=== PATIENT | female | born 1960 | race Caucasian/White ===

== ENCOUNTER 2019-02-15 05:50 | Day surgery (SDC) | payer OTHER ==
[~2019-02-15] VITALS: Ht 152.4 cm; Wt 54.0 kg
[2019-02-15] MEDS ORDERED: SEVOFLURANE 250 ML BTL INH ONE (08:15)
[2019-02-15] MEDS ORDERED: LIDOCAINE 2% 100 MG/5 ML SYR IVP ONE (08:15)
[2019-02-15] MEDS ORDERED: PROPOFOL 200 MG/20 ML VIAL IV ONE (08:15)
[2019-02-15] MEDS ORDERED: ceFAZolin 1,000 MG VIAL ONE (08:15)
[2019-02-15] MEDS ORDERED: BUPIVACAINE-MPF 0.5% 30 ML VIAL INJ ONE (08:25)
[2019-02-15] MEDS ORDERED: MIDAZOLAM 2 MG/2 ML VIAL ONE (08:29)
[2019-02-15] MEDS ORDERED: fentaNYL 0.05 MG/ML VIAL ONE (08:29)
[2019-02-15] MEDS ORDERED: HYDROmorphone 1 MG/ML AMP IVP PRN (08:50)
[2019-02-15] MEDS ORDERED: BLOOD GLUCOSE MONITORING 1 DEV DEV FS SCH (08:50)
[2019-02-15] MEDS ORDERED: ONDANSETRON 4 MG/2 ML VIAL IVP PRN (08:50)
[2019-02-15] MEDS ORDERED: MORPHINE SULFATE 4 MG/ML SYR IV PRN (09:55)
[2019-02-15] MEDS ORDERED: ONDANSETRON 4 MG/2 ML VIAL IV PRN (09:55)
[2019-02-15] MEDS ORDERED: HYDROcodone/APAP 5/325 MG 1 TAB TAB PO PRN (09:55)
[2019-02-15] MEDS ORDERED: MORPHINE SULFATE 2 MG/ML SYR IVP PRN (09:55)
[2019-02-15] MEDS ORDERED: ACETAMINOPHEN 325 MG TAB PO PRN (09:55)
== END 2019-02-15 11:23 | disposition home or self-care (01) ==
LOC: MDS 05:50 → MMU 05:54 → MDS 11:23
PROVIDERS: ATTEND Surgery
DX: M67.432 Ganglion, left wrist (principal); M65.9 Synovitis and tenosynovitis, unspecified; E11.9 Type 2 diabetes mellitus without complications; M19.90 Unspecified osteoarthritis, unspecified site; F17.210 Nicotine dependence, cigarettes, uncomplicated; Z98.41 Cataract extraction status, right eye; Z98.42 Cataract extraction status, left eye; Z79.899 Other long term (current) drug therapy; Z98.890 Other specified postprocedural states; Z79.84 Long term (current) use of oral hypoglycemic drugs
CPT/HCPCS: 25111; 71045; 82948; 88304; J0690; J2001; J2250; J2704; J3010; J3490; J7030; J7060

== ENCOUNTER 2021-04-18 06:24 | Day surgery (SDC) | payer OTHER, SELFPAY ==
[~2021-04-18] VITALS: Ht 152.4 cm; Wt 54.9 kg
[2021-04-18] MEDS ORDERED: LIDOCAINE 2% 100 MG/5 ML UJET TP ONE (09:28)
[2021-04-18] MEDS ORDERED: fentaNYL citrate 0.05 MG/ML VIAL ONE (09:28)
[2021-04-18] MEDS ORDERED: fentaNYL citrate 0.05 MG/ML VIAL IVP ONE (10:10)
== END 2021-04-18 10:35 | disposition home or self-care (01) ==
LOC: MDS 06:24 → MMU 06:24 → MDS 10:35
PROVIDERS: ATTEND Internal Medicine Gastroenterology
DX: Z12.11 Encounter for screening for malignant neoplasm of colon (principal); E11.9 Type 2 diabetes mellitus without complications; K64.4 Residual hemorrhoidal skin tags; M19.90 Unspecified osteoarthritis, unspecified site; E78.5 Hyperlipidemia, unspecified; F17.200 Nicotine dependence, unspecified, uncomplicated; Z79.82 Long term (current) use of aspirin; Z79.899 Other long term (current) drug therapy
CPT/HCPCS: 45378; J3010; U0003

== ENCOUNTER 2021-06-14 16:22 | Emergency (ER) | payer OTHER, SELFPAY ==
[~2021-06-14] VITALS: Ht 152.4 cm; Wt 54.9 kg
[2021-06-14 16:32] VITALS: BP 146/95
--- NOTE | 2021-06-14 16:38 | NUR ---
PT AMBULATED TO BED 9 WITH WALKER
--- NOTE | 2021-06-14 16:48 | NUR ---
61/F bib self to ED with c/o lower back pain radiating down left leg. Patient states for one week pain has been worsening, states 10/10 pain that worsens when at rest but resolves with movement. Patient states she recently had pelvic surgery s/p fall on 02/27/21. Reports taking one [place] prior to arrival to ED with no relief. Denies fever, chills, dysuria, chest pain, sob, nausea or vomiting. Patient able to ambulate with walker.
[2021-06-14] MEDS ORDERED: MORPHINE SULFATE 4 MG/ML SYR IM ONE (16:50)
[2021-06-14] MEDS ORDERED: ONDANSETRON 4 MG ODT PO ONE (16:50)
--- NOTE | 2021-06-14 17:00 | NUR ---
Patient taken to xray via w/c
--- NOTE | 2021-06-14 18:15 | NUR ---
Patient discharged with v/s stable. Written and verbal after care instructions given and explained. Patient verbalized understanding. Ambulatory with steady gait with use of walker. All questions addressed prior to discharge. Advised to follow up with PMD.
[2021-06-14 18:16] VITALS: BP 136/57
== END 2021-06-14 18:15 | disposition home or self-care (01) ==
LOC: MED 16:22
DX: M54.42 Lumbago with sciatica, left side (principal); W19.XXXA Unspecified fall, initial encounter; Y93.89 Activity, other specified; Y92.89 Other specified places as the place of occurrence of the external cause; Y99.8 Other external cause status
CPT/HCPCS: 72100; 96372; 99283; J2270; Q0162